=== PATIENT | male | born 1940 | race Caucasian/White ===

== ENCOUNTER 2021-01-18 12:34 | Outpatient (CLI) | payer MEDICARE, BC, OTHER | END 2021-01-18 12:35 | disposition home or self-care (01) | LOC: ULT 12:34 | PROVIDERS: ATTEND Internal Medicine Hematology & Oncology | DX: Z51.11 Encounter for antineoplastic chemotherapy (principal); C64.1 Malignant neoplasm of right kidney, except renal pelvis; C78.01 Secondary malignant neoplasm of right lung; I08.3 Combined rheumatic disorders of mitral, aortic and tricuspid valves; Z79.899 Other long term (current) drug therapy | CPT/HCPCS: 93306 ==

== ENCOUNTER 2021-06-07 13:32 | Outpatient (CLI) | payer MEDICARE, BC | END 2021-06-07 13:33 | disposition home or self-care (01) | LOC: MRI 13:32 | PROVIDERS: ATTEND Internal Medicine Hematology & Oncology | DX: C64.1 Malignant neoplasm of right kidney, except renal pelvis (principal); C78.01 Secondary malignant neoplasm of right lung; R30.0 Dysuria; Z79.899 Other long term (current) drug therapy | CPT/HCPCS: 70553 ==